=== PATIENT | female | born 1955 | race Caucasian/White ===

== ENCOUNTER 2022-07-01 20:06 | Inpatient (IN) | payer MEDICARE, OTHER ==
[2022-07-01] MEDS ORDERED: IPRATROPIUM-ALBUTEROL 3 ML NEB INHALATION STA (20:26)
[2022-07-01] MEDS ORDERED: methylPREDNISolone SOD SUCCI 125 MG/2 ML VIAL IV STA (20:26)
[2022-07-01] MEDS ORDERED: MAGNESIUM SULFATE-D5W PMX 1 GM in DEXTROSE/WATER 1 100ML.BAG IVPB STA (20:26)
[2022-07-01 20:44] LABS: Basophils # (A) 0.1 k/uL (0-0.2); Basophils % (A) 1 %; Eosinophils # (A) 0.1 k/uL (0-0.7); Eosinophils % (A) 1 %; HCT 42.9 % (34.0-46.0); Lymphocytes # (A) 1.9 k/uL (1.0-4.8); Lymphocytes % (A) 15 %; MCH 26.5 pg (25.0-35.0); MCHC 32.6 g/dL (31.0-37.0); MCV 81.3 fL (80.0-100.0); Mean Platelet Volume 8.9; Monocytes # (A) 0.8 k/uL (0-1.0); Monocytes % (A) 7 %; Neutrophils # (A) 9.8 k/uL (1.3-7.7); Neutrophils % (A) 76 %; Platelet Count 459 k/uL (150-450); RBC 5.27 m/uL (3.80-5.40); RDW 13.5 % (11.5-15.5); WBC 12.9 k/uL (3.8-10.6)
--- NOTE | 2022-07-01 20:44 | ED ---
SOB HPI <Adonis Kay - Last Filed: 07/01/22 20:57> - General Source: patient, family Mode of arrival: wheelchair Limitations: no limitations <Shelby Pretty - Last Filed: 07/02/22 04:20> - General Chief Complaint: Shortness of Breath Stated Complaint: Weakness Time Seen by Provider: 07/01/22 20:28 - History of Present Illness Initial Comments: Patient is a 67-year-old female presenting with chief complaint of shortness of breath. Patient admits to smoking a pack of cigarettes per day. Patient states that last week she has had progressive shortness of breath, today symptoms acutely worsened. She admits to chest pain and generalized weakness. She has been taking Mucinex for productive cough. No fevers or chills. No nausea, vomiting, abdominal pain. No palpitations. (Shelby Pretty) - Related Data Home Medications Medication Instructions Recorded Confirmed No Known Home Medications 07/01/22 07/01/22 Allergies Allergy/AdvReac Type Severity Reaction Status Date / Time No Known Allergies Allergy Verified 07/01/22 20:47 Review of Systems ROS Other: All systems not noted in ROS Statement are negative. <RahulAdonis - Last Filed: 07/01/22 20:57> ROS Other: All systems not noted in ROS Statement are negative. <Shelby Pretty - Last Filed: 07/02/22 04:20> ROS Statement: Those systems with pertinent positive or pertinent negative responses have been documented in the HPI. Past Medical History Past Medical History: No Reported History Past Surgical History: Tubal Ligation Past Psychological History: No Psychological Hx Reported Smoking Status: Current every day smoker Past Alcohol Use History: None Reported Past Drug Use History: None Reported <Shelby Pretty - Last Filed: 07/02/22 04:20> General Exam Limitations: no limitations General appearance: alert, in no apparent distress Head exam: Present: atraumatic, normocephalic, normal inspection Eye exam: Present: normal appearance Neck exam: Present: normal inspection Respiratory exam: Present: respiratory distress, decreased breath sounds (Left- sided) Cardiovascular Exam: Present: tachycardia, irregular rhythm, normal heart sounds. Absent: systolic murmur, diastolic murmur, rubs, gallop, clicks Neurological exam: Present: alert, oriented X3, CN II-XII intact Psychiatric exam: Present: normal affect, normal mood Skin exam: Present: warm, dry, intact, normal color. Absent: rash <Shelby Pretty - Last Filed: 07/02/22 04:20> Course Vital Signs 07/01/22 07/01/22 07/01/22 20:06 20:45 20:50 Temperature 97 F L Pulse Rate 120 H 118 H 125 H Respiratory 32 H 35 H 28 H Rate Blood Pressure 146/90 141/68 132/93 O2 Sat by Pulse 90 L 100 100 Oximetry Fraction of Inspired Oxygen (FIO2) 07/01/22 07/01/22 07/01/22 20:51 21:00 21:05 Temperature Pulse Rate 124 H 122 H 128 H Respiratory 30 H Rate Blood Pressure 132/93 O2 Sat by Pulse 100 Oximetry Fraction of 40 Inspired Oxygen (FIO2) 07/01/22 07/01/22 07/01/22 21:10 21:19 21:20 Temperature Pulse Rate 122 H 122 H 161 H Respiratory 32 H 34 H Rate Blood Pressure 132/93 129/82 129/82 O2 Sat by Pulse 100 100 100 Oximetry Fraction of Inspired Oxygen (FIO2) 07/01/22 07/01/22 07/01/22 21:30 21:40 21:50 Temperature Pulse Rate 115 H 116 H 115 H Respiratory 32 H 32 H 32 H Rate Blood Pressure 129/82 116/89 116/89 O2 Sat by Pulse 99 99 98 Oximetry Fraction of Inspired Oxygen (FIO2) 07/01/22 07/01/22 07/01/22 22:00 22:08 22:10 Temperature Pulse Rate 179 H 113 H 113 H Respiratory 33 H 32 H 33 H Rate Blood Pressure 116/89 111/88 O2 Sat by Pulse 98 98 98 Oximetry Fraction of Inspired Oxygen (FIO2) 07/01/22 07/01/22 07/01/22 22:20 22:21 22:30 Temperature Pulse Rate 112 H 116 H 117 H Respiratory 43 H 35 H 31 H Rate Blood Pressure 117/82 136/90 136/90 O2 Sat by Pulse 97 98 97 Oximetry Fraction of Inspired Oxygen (FIO2) 07/01/22 07/01/22 07/01/22 22:40 22:50 23:00 Temperature Pulse Rate 113 H 118 H 115 H Respiratory 33 H 32 H 29 H Rate Blood Pressure 113/82 119/84 133/86 O2 Sat by Pulse 98 98 99 Oximetry Fraction of Inspired Oxygen (FIO2) 07/01/22 07/01/22 07/01/22 23:10 23:20 23:30 Temperature Pulse Rate 115 H 114 H 113 H Respiratory 32 H 33 H 34 H Rate Blood Pressure 120/83 126/89 127/82 O2 Sat by Pulse 98 98 98 Oximetry Fraction of Inspired Oxygen (FIO2) 07/01/22 07/01/22 07/01/22 23:33 23:40 23:50 Temperature Pulse Rate 107 H 111 H Respiratory 28 H 26 H Rate Blood Pressure 134/87 120/83 O2 Sat by Pulse 96 97 Oximetry Fraction of 40 Inspired Oxygen (FIO2) 07/02/22 07/02/22 00:00 00:10 Temperature Pulse Rate 128 H Respiratory 32 H Rate Blood Pressure 134/79 O2 Sat by Pulse 96 Oximetry Fraction of Inspired Oxygen (FIO2) Medical Decision Making - Lab Data Result diagrams: 07/01/22 20:36 - EKG Data -: EKG Interpreted by Me <Adonis Kay - Last Filed: 07/01/22 20:57> - Lab Data Result diagrams: 07/01/22 20:36 07/01/22 20:36 <Shelby Pretty - Last Filed: 07/02/22 04:20> - Medical Decision Making Was pt. sent in by a medical professional or institution ([facility], [employer], urgent care, hospital, or jail...) When possible be specific @ -No Did you speak to anyone other than the patient for history (EMS, parent, family, police, friend...)? What history was obtained from this source @ -Patient's son Did you review nursing and triage notes (agree or disagree)? Why? @ -I reviewed and agree with nursing and triage notes Were old charts reviewed (outside hosp., previous admission, EMS record, old EKG, old radiological studies, urgent care reports/EKG's, jail records)? Report findings @ -No old charts were reviewed Differential Diagnosis (chest pain, altered mental status, abdominal pain women, abdominal pain men, vaginal bleeding, weakness, fever, dyspnea, syncope, headache, dizziness, GI bleed, back pain, seizure, CVA, palpatations, mental health, musculoskeletal)? @ -MDM Differential Dyspnea: Coronary syndrome, arrhythmia, tamponade, asthma, COPD, pulmonary embolism, pneumonia, pneumothorax, pulmonary effusion, anaphylaxis, diabetic ketoacidosis, flailed chest, pulmonary contusion, diaphragmatic rupture, anemia, neuromuscular this is not meant to be an all-inclusive list. EKG interpreted by me (3pts min.). @ -As above X-rays interpreted by me (1pt min.). @ -Chest x-ray shows large left pleural effusion and lower lobe consolidation. Small right pleural effusion and right basilar infiltrate. No obvious heart failure. CT interpreted by me (1pt min.). @ -None done U/S interpreted by me (1pt. min.). @ -None done What testing was considered but not performed or refused? (CT, X-rays, U/S, labs)? Why? @ -None What meds were considered but not given or refused? Why? @ -None Did you discuss the management of the patient with other professionals (professionals i.e. , PA, [employer], lab, RT, psych nurse, psychiatric social worker supervisor, cigar head stringer, teacher, safety officer, casey saw operator)? Give summary @ -No Was smoking cessation discussed for >3mins.? @ -No Was critical care preformed (if so, how long)? @ -No Were there social determinants of health that impacted care today? How? (H omelessness, low income, unemployed, alcoholism, drug addiction, transportation, low edu. Level, literacy, decrease access to med. care, halfway, rehab)? @ -No Was there de-escalation of care discussed even if they declined (Discuss DNR or withdrawal of care, Hospice)? DNR status @ -No What co-morbidities impacted this encounter? (DM, HTN, Smoking, COPD, CAD, Cancer, CVA, ARF, Chemo, Hep., AIDS, mental health diagnosis, sleep apnea, morbid obesity)? @ -Smoking Was patient admitted / discharged? Hospital course, mention meds given and route, prescriptions, significant lab abnormalities, going to OR and other pertinent info. @ -Patient is a 67-year-old female presenting with chief complaint of shortness of breath and chest pain. Symptoms acutely worsen today after a week of symptoms. EKG shows A. fib with RVR with rate in the 180s. Patient is started on Cardizem drip of 5 mg per hour, after a bolus of 5 mg. Lab work shows WBC 12.9. Sodium 133. Lactic acid 4.9. Troponin 0.051. BNP 1670. Patient is negative for influenza, RSV, and Covid. Chest x-ray shows large left-sided pleural effusion, suspect possible mass due to patient's history of smoking and presentation. Patient was also given DuoNeb and Solu-Medrol. Patient will be admitted for acute COPD exacerbation, pleural effusion, and A. fib with RVR. I spoke with Dr. Carrasquillo who accepted admission. Patient is agreeable with this plan. I discussed this case with my attending Dr. Trevizo. Undiagnosed new problem with uncertain prognosis? @ -No Drug Therapy requiring intensive monitoring for toxicity (Heparin, Nitro, Insulin, Cardizem)? @ -Cardizem Were any procedures done? @ -No Diagnosis/symptom? @ -COPD Acute, or Chronic, or Acute on Chronic? @ -Acute Uncomplicated (without systemic symptoms) or Complicated (systemic symptoms)? @ -Complicated Side effects of treatment? @ -No Exacerbation, Progression, or Severe Exacerbation? @ -No Poses a threat to life or bodily function? How? (Chest pain, USA, NM, pneumonia, PE, COPD, DKA, ARF, appy, cholecystitis, CVA, Diverticulitis, Homicidal, Suicidal, threat to staff... and all critical care pts) @ -Yes Diagnosis/symptom? @Pleural effusion Acute, or Chronic, or Acute on Chronic? @Acute Uncomplicated (without systemic symptoms) or Complicated (systemic symptoms)? @Complicated Side effects of treatment? @ none Exacerbation, Progression, or Severe Exacerbation] @ no Poses a threat to life or bodily function? @yes Diagnosis/symptom? @A. fib with RVR Acute, or Chronic, or Acute on Chronic? @Acute Uncomplicated (without systemic symptoms) or Complicated (systemic symptoms)? @Complicated Side effects of treatment? @ hypotension Exacerbation, Progression, or Severe Exacerbation] @ no Poses a threat to life or bodily function? @Yes (Shelby Pretty) - Lab Data Lab Results 07/01/22 07/01/22 07/01/22 Range/Units 20:36 20:36 20:36 WBC 12.9 H (3.8-10.6) k/uL RBC 5.27 (3.80-5.40) m/uL Hgb 14.0 (11.4-16.0) gm/dL Hct 42.9 (34.0-46.0) % MCV 81.3 (80.0-100.0) fL MCH 26.5 (25.0-35.0) pg MCHC 32.6 (31.0-37.0) g/dL RDW 13.5 (11.5-15.5) % Plt Count 459 H (150-450) k/uL MPV 8.9 Neutrophils % 76 % Lymphocytes % 15 % Monocytes % 7 % Eosinophils % 1 % Basophils % 1 % Neutrophils # 9.8 H (1.3-7.7) k/uL Lymphocytes # 1.9 (1.0-4.8) k/uL Monocytes # 0.8 (0-1.0) k/uL Eosinophils # 0.1 (0-0.7) k/uL Basophils # 0.1 (0-0.2) k/uL PT 11.0 (9.0-12.0) sec INR 1.1 (<1.2) APTT 23.3 (22.0-30.0) sec D-Dimer (<0.60) mg/L FEU Sodium 133 L (137-145) mmol/L Potassium 4.1 (3.5-5.1) mmol/L Chloride 97 L (98-107) mmol/L Carbon Dioxide 20 L (22-30) mmol/L Anion Gap 16 mmol/L BUN 16 (7-17) mg/dL Creatinine 0.55 (0.52-1.04) mg/dL Est GFR (CKD-EPI)AfAm >90 (>60 ml/min/1.73 sqM) Est GFR (CKD-EPI)NonAf >90 (>60 ml/min/1.73 sqM) Glucose 136 H (74-99) mg/dL Lactic Ac Sepsis Rflx Plasma Lactic Acid Loco (0.7-2.0) mmol/L Calcium 9.1 (8.4-10.2) mg/dL Magnesium 2.2 (1.6-2.3) mg/dL Total Bilirubin 0.8 (0.2-1.3) mg/dL AST 26 (14-36) U/L ALT 35 H (4-34) U/L Alkaline Phosphatase 148 H (38-126) U/L Troponin I (0.000-0.034) ng/mL NT-Pro-B Natriuret Pep pg/mL Total Protein 7.5 (6.3-8.2) g/dL Albumin 4.1 (3.5-5.0) g/dL Influenza Type A (PCR) (Not Detectd) Influenza Type B (PCR) (Not Detectd) RSV (PCR) (Not Detectd) SARS-CoV-2 (PCR) (Not Detectd) 07/01/22 07/01/22 07/01/22 Range/Units 20:36 20:36 20:36 WBC (3.8-10.6) k/uL RBC (3.80-5.40) m/uL Hgb (11.4-16.0) gm/dL Hct (34.0-46.0) % MCV (80.0-100.0) fL MCH (25.0-35.0) pg MCHC (31.0-37.0) g/dL RDW (11.5-15.5) % Plt Count (150-450) k/uL MPV Neutrophils % % Lymphocytes % % Monocytes % % Eosinophils % % Basophils % % Neutrophils # (1.3-7.7) k/uL Lymphocytes # (1.0-4.8) k/uL Monocytes # (0-1.0) k/uL Eosinophils # (0-0.7) k/uL Basophils # (0-0.2) k/uL PT (9.0-12.0) sec INR (<1.2) APTT (22.0-30.0) sec D-Dimer (<0.60) mg/L FEU Sodium (137-145) mmol/L Potassium (3.5-5.1) mmol/L Chloride (98-107) mmol/L Carbon Dioxide (22-30) mmol/L Anion Gap mmol/L BUN (7-17) mg/dL Creatinine (0.52-1.04) mg/dL Est GFR (CKD-EPI)AfAm (>60 ml/min/1.73 sqM) Est GFR (CKD-EPI)NonAf (>60 ml/min/1.73 sqM) Glucose (74-99) mg/dL Lactic Ac Sepsis Rflx Plasma Lactic Acid Loco 4.9 H* (0.7-2.0) mmol/L Calcium (8.4-10.2) mg/dL Magnesium (1.6-2.3) mg/dL Total Bilirubin (0.2-1.3) mg/dL AST (14-36) U/L ALT (4-34) U/L Alkaline Phosphatase (38-126) U/L Troponin I 0.051 H* (0.000-0.034) ng/mL NT-Pro-B Natriuret Pep pg/mL Total Protein (6.3-8.2) g/dL Albumin (3.5-5.0) g/dL Influenza Type A (PCR) Not Detected (Not Detectd) Influenza Type B (PCR) Not Detected (Not Detectd) RSV (PCR) Not Detected (Not Detectd) SARS-CoV-2 (PCR) Not Detected (Not Detectd) 07/01/22 07/01/22 07/01/22 Range/Units 20:36 20:38 21:03 WBC (3.8-10.6) k/uL RBC (3.80-5.40) m/uL Hgb (11.4-16.0) gm/dL Hct (34.0-46.0) % MCV (80.0-100.0) fL MCH (25.0-35.0) pg MCHC (31.0-37.0) g/dL RDW (11.5-15.5) % Plt Count (150-450) k/uL MPV Neutrophils % % Lymphocytes % % Monocytes % % Eosinophils % % Basophils % % Neutrophils # (1.3-7.7) k/uL Lymphocytes # (1.0-4.8) k/uL Monocytes # (0-1.0) k/uL Eosinophils # (0-0.7) k/uL Basophils # (0-0.2) k/uL PT (9.0-12.0) sec INR (<1.2) APTT (22.0-30.0) sec D-Dimer 2.16 H (<0.60) mg/L FEU Sodium (137-145) mmol/L Potassium (3.5-5.1) mmol/L Chloride (98-107) mmol/L Carbon Dioxide (22-30) mmol/L Anion Gap mmol/L BUN (7-17) mg/dL Creatinine (0.52-1.04) mg/dL Est GFR (CKD-EPI)AfAm (>60 ml/min/1.73 sqM) Est GFR (CKD-EPI)NonAf (>60 ml/min/1.73 sqM) Glucose (74-99) mg/dL Lactic Ac Sepsis Rflx Y Plasma Lactic Acid Loco (0.7-2.0) mmol/L Calcium (8.4-10.2) mg/dL Magnesium (1.6-2.3) mg/dL Total Bilirubin (0.2-1.3) mg/dL AST (14-36) U/L ALT (4-34) U/L Alkaline Phosphatase (38-126) U/L Troponin I (0.000-0.034) ng/mL NT-Pro-B Natriuret Pep 1670 pg/mL Total Protein (6.3-8.2) g/dL Albumin (3.5-5.0) g/dL Influenza Type A (PCR) (Not Detectd) Influenza Type B (PCR) (Not Detectd) RSV (PCR) (Not Detectd) SARS-CoV-2 (PCR) (Not Detectd) - EKG Data EKG Comments: Atrial fibrillation with rapid ventricular response ventricular rate 182. AK interval indeterminable. QRS 86. QT 227. QTC 322. (Shelby Pretty) Disposition <Adonis Kay - Last Filed: 07/01/22 20:57> Time of Disposition: 22:07 <Shelby Pretty - Last Filed: 07/02/22 04:20> Clinical Impression: COPD (chronic obstructive pulmonary disease), Pleural effusion, Atrial fibrillation with RVR Disposition: ADMITTED IP TO THIS HOSP Condition: Serious
[2022-07-01] MEDS ORDERED: DILTIAZEM DRIP BOLUS FROM BAG 1 MG SOLN IV ONE (20:49)
[2022-07-01 20:56] LABS: AST 26 U/L (14-36); African American GFR (CKD) >90 (>60 ml/min/1.73 sqM); Albumin 4.1 g/dL (3.5-5.0); Alkaline Phosphatase 148 U/L (38-126); Anion Gap 16 mmol/L; Blood Urea Nitrogen 16 mg/dL (7-17); Calcium 9.1 mg/dL (8.4-10.2); Carbon Dioxide 20 mmol/L (22-30); Chloride 97 mmol/L (98-107); Glucose 136 mg/dL (74-99); Magnesium 2.2 mg/dL (1.6-2.3); Non-African American GFR(CKD) >90 (>60 ml/min/1.73 sqM); Potassium 4.1 mmol/L (3.5-5.1); Sodium 133 mmol/L (137-145); Total Bilirubin 0.8 mg/dL (0.2-1.3); Total Protein 7.5 g/dL (6.3-8.2)
[2022-07-01 20:59] LABS: INR 1.1 (<1.2); Partial Thromboplastin Time 23.3 sec (22.0-30.0)
[2022-07-01] MEDS ORDERED: DILTIAZEM 125 MG in SODIUM CHLORIDE 0.9% 100 ML IV SCH ×3 (21:00→22:15)
[2022-07-01 21:02] LABS: ALT 35 U/L (4-34)
--- NOTE | 2022-07-01 21:02 | XR ---
EXAMINATION TYPE: XR chest 1V portable DATE OF EXAM: 07/01/2022 COMPARISON: NONE HISTORY: Short of breath TECHNIQUE: Single view FINDINGS: Heart is enlarged. There is blunting of the costophrenic angles and more on the left side. There is large left pleural effusion. Right lung is clear of infiltrate. No obvious heart failure. No pneumothorax. IMPRESSION: Large left pleural effusion and left lower lobe consolidation. Small right pleural effusi on and right basilar infiltrate. No obvious heart failure.
[2022-07-01] MEDS ORDERED: cefTRIAXone IN SWFI 1,000 MG/10 ML SYRINGE IVP STA (22:36)
[2022-07-01] MEDS ORDERED: AZITHROMYCIN 500 MG in SODIUM CHLORIDE 0.9% 250 ML IVPB STA (22:36)
[2022-07-01] MEDS ORDERED: NALOXONE 0.4 MG/ML 1 ML VIAL IV PRN (22:44)
[2022-07-01] MEDS ORDERED: SODIUM CHLORIDE 0.9% 500 ML 500 ML IV ONE (23:03)
[2022-07-01] MEDS ORDERED: SODIUM CHLORIDE 0.9% 1,000 ML IV ONE (23:03)
--- NOTE | 2022-07-02 00:29 | CT ---
EXAMINATION TYPE: CT chest angio for PE DATE OF EXAM: 07/02/2022 COMPARISON: None HISTORY: 270.7 CT DLP: ELEVATED D DIMER mGycm Automated exposure control for dose reduction was used. CONTRAST: Performed with IV Contrast, patient injected with 80 mL of Isovue 370. There are Three-D postprocessed images. There is diffuse bullous pulmonary emphysema. There is large left pleural effusion. There is some con solidation and atelectasis in the lingula left upper lobe. There is significant obstruction of the br anches of the left bronchus with luminal narrowing and filling defects. Heart size is normal. There is a moderate pericardial effusion. There is suggestion of a masslike den sity at the left perihilum that measures 5 x 4 cm. No evidence of filling defect in the pulmonary art eries. There are some patchy infiltrate in the right lower lobe at the lung base. There is 2.5 cm nazanin llate infiltrate medial right upper lobe. The thoracic spine is intact. No compression fracture. Sternum is intact. IMPRESSION: No evidence of pulmonary embolism. Extensive consolidation in the lingula left upper lobe with possible large mass at the left pulmonary hilum. Significant narrowing of the branches of the left bronchus that could relate to extrinsic compression from tumor. Large left pleural effusion with moderate-sized pericardial effusion. Bullous pulmonary emphysema. Th ere is enlarged 2.5 cm subcarinal lymph node. Stellate infiltrate medial right upper lobe.
[2022-07-02] MEDS ORDERED: ALBUTEROL HFA INHALER INHALATION PRN (01:04)
--- NOTE | 2022-07-02 01:05 | P.HPIM ---
History of Present Illness H&P Date: 07/01/22 The patient is a 67-year-old female with a PMH of tobacco abuse and no contact with a physician for over a decade who presents to the emergency room with complaints of shortness of breath. The patient reports that her breathing gradually worsened over the past 1-2 days. She also reports gradual weight loss due to anorexia and poor oral intake over the past several months. Patient reports smoking 1 pack of cigarettes daily for most of her life. She reports a chronic unchanged unproductive cough. Denies chest discomfort, nausea, vomiting, palpitations, or diaphoresis. Also denied orthopnea, PND, or lower extremity edema. Chest CTA revealed a likely 5 cm x 4 cm mass at the left perihilum with significant narrowing of the branches of the left bronchus as well as a large left-sided pleural effusion with moderate sized pericardial effusion. Review of systems: Pertinent positives and negatives as discussed in HPI, a complete review of systems was performed and all other systems are negative. Physical examination: Vital signs reviewed General: On BiPAP, non toxic, no distress, appears older than stated age, normal weight Derm: no unusual rashes/lesions, warm Head: atraumatic, normocephalic, symmetric Eyes: EOMI, no lid lag, anicteric sclera, pupils equal round reactive to light ENT: Nose and ears atraumatic Neck: No cervical lymphadenopathy, trachea midline, supple Mouth: no lip lesion, mucus membranes moist Cardiovascular: S1S2 reg, no murmur, positive dorsalis pedis pulse bilateral, no edema Lungs: Scattered rhonchi with somewhat poor breath sounds, no accessory muscle use Abdominal: soft, nontender to palpation, no guarding Ext: muscle strength 4 out of 5 in all 4 extremities grossly, no gross muscle atrophy, no contractures, Neuro: CN II-XI grossly intact, no gross focal neuro deficits Psych: Alert, oriented, appropriate affect Assessment: Acute hypoxic respiratory failure, likely secondary to large left pleural effusion with underlying mass A. fib with RVR Elevated troponin Lactic acidosis Imaging: Chest CTA revealed a likely 5 cm x 4 cm mass at the left perihilum with signific ant narrowing of the branches of the left bronchus as well as a large left-sided pleural effusion with moderate sized pericardial effusion. EKG revealed A. fib with RVR at 182 bpm. Data Review: Vital signs upon arrival at the emergency room were BP 146/90, SpO2 90% on room air, temp 97F, pulse 120, respiratory rate 32. Left evaluation was remarkable for troponin 0.051, d-dimer 2.16, proBNP 1670, WBC count 12.9, platelets 459, lactic acid 4.9, and sodium 133. Plan: Pulmonary consulted for thoracentesis C/w Cardizem infusion Cardiology consulted Duonebs inhaled prn and RTC ordered C/w Bipap for now Obtain ABG Obtain Echocardiogram and consider cardiothoracic surgery consult for pericardial effusion drainage vs window Trend troponin Monitor lactic acid for resolution DVT prophylaxis: Lovenox The patient is admitted with an anticipated greater than 2 midnight stay for evaluation of hypoxic respiratory failure CODE STATUS: Full Code Discussed with: Patient, son, grand-daughter Anticipated discharge place: Home Past Medical History Past Medical History: No Reported History Past Surgical History: Tubal Ligation Past Psychological History: No Psychological Hx Reported Smoking Status: Current every day smoker Past Alcohol Use History: None Reported Past Drug Use History: None Reported - Past Family History Mother Family Medical History: COPD Medications and Allergies Home Medications Medication Instructions Recorded Confirmed Type No Known Home Medications 07/01/22 07/01/22 History Allergies Allergy/AdvReac Type Severity Reaction Status Date / Time No Known Allergies Allergy Verified 07/01/22 20:47 Physical Exam Vitals: Vital Signs Temp Pulse Resp BP Pulse Ox FiO2 07/01/22 23:40 110 H 29 H 134/87 96 07/01/22 23:33 40 07/01/22 23:30 113 H 34 H 127/82 98 07/01/22 23:20 114 H 33 H 126/89 98 07/01/22 23:10 115 H 32 H 120/83 98 07/01/22 23:00 115 H 29 H 133/86 99 07/01/22 22:50 118 H 32 H 119/84 98 07/01/22 22:40 113 H 33 H 113/82 98 07/01/22 22:30 117 H 31 H 136/90 97 07/01/22 22:21 116 H 35 H 136/90 98 07/01/22 22:20 112 H 43 H 117/82 97 07/01/22 22:10 113 H 33 H 111/88 98 07/01/22 22:08 113 H 32 H 98 07/01/22 22:00 179 H 33 H 116/89 98 07/01/22 21:50 115 H 32 H 116/89 98 07/01/22 21:40 116 H 32 H 116/89 99 07/01/22 21:30 115 H 32 H 129/82 99 07/01/22 21:20 161 H 34 H 129/82 100 07/01/22 21:19 122 H 32 H 129/82 100 07/01/22 21:10 122 H 132/93 100 07/01/22 21:05 128 H 07/01/22 21:00 122 H 30 H 132/93 100 07/01/22 20:51 124 H 40 07/01/22 20:50 125 H 28 H 132/93 100 07/01/22 20:45 118 H 35 H 141/68 100 07/01/22 20:06 97 F L 120 H 32 H 146/90 90 L Intake and Output 07/01/22 07/01/22 07/02/22 14:59 22:59 07:59 Intake Total 3.917 13.167 Balance 3.917 13.167 Intake: Intake, IV Titration 3.917 13.167 Amount Diltiazem 125 mg In 3.917 Sodium Chloride 0.9% 100 ml @ 5 MG/HR 5 mls/hr IV .Q24H [facility] Rx#:[id number] Diltiazem 125 mg In 0 13.167 Sodium Chloride 0.9% 100 ml @ 5 MG/HR 5 mls/hr IV .Q24H [facility] Rx#:[id number] Other: Weight 54.431 kg Results CBC & Chem 7: 07/01/22 20:36 07/01/22 20:36 Labs: Abnormal Lab Results - Last 24 Hours (Table) 07/01/22 07/01/22 07/01/22 Range/Units 20:36 20:36 20:36 WBC 12.9 H (3.8-10.6) k/uL Plt Count 459 H (150-450) k/uL Neutrophils # 9.8 H (1.3-7.7) k/uL D-Dimer (<0.60) mg/L FEU Sodium 133 L (137-145) mmol/L Chloride 97 L (98-107) mmol/L Carbon Dioxide 20 L (22-30) mmol/L Glucose 136 H (74-99) mg/dL Plasma Lactic Acid Loco 4.9 H* (0.7-2.0) mmol/L ALT 35 H (4-34) U/L Alkaline Phosphatase 148 H (38-126) U/L Troponin I (0.000-0.034) ng/mL 07/01/22 07/01/22 Range/Units 20:36 20:36 WBC (3.8-10.6) k/uL Plt Count (150-450) k/uL Neutrophils # (1.3-7.7) k/uL D-Dimer 2.16 H (<0.60) mg/L FEU Sodium (137-145) mmol/L Chloride (98-107) mmol/L Carbon Dioxide (22-30) mmol/L Glucose (74-99) mg/dL Plasma Lactic Acid Loco (0.7-2.0) mmol/L ALT (4-34) U/L Alkaline Phosphatase (38-126) U/L Troponin I 0.051 H* (0.000-0.034) ng/mL
[2022-07-02] MEDS: ALBUTEROL HFA INHALER INHALATION SCH ×4 (07:52→20:13)
[2022-07-02] MEDS: TIOTROPIUM 2.5 MCG INHALER INHALATION SCH (07:52)
[2022-07-02] MEDS ORDERED: ENOXAPARIN 40 MG/0.4 ML SYRINGE SQ SCH (09:00)
[2022-07-02] MEDS ORDERED: HEPARIN SODIUM 1,000 UN/ML (10ML VL) IV ONE (10:05)
--- NOTE | 2022-07-02 10:22 | P.CRDCN ---
History of Present Illness Consult date: 07/02/22 Requesting physician: Riaz Carrasquillo Reason for Consult (text): elevated troponin Chief complaint: lighteadedness, shortness of breath History of present illness: This is a pleasant 67-year-old female patient who has no significant past medical history but has not seen a physician in many many years. She is a current smoker for many years of one to one and a half packs per day. She had been complaining of a cough, productive over the past week and had been taking Mucinex at home. She presented to the emergency department with complaints of worsening shortness of breath and lightheadedness. Upon presentation she was found to be in atrial fibrillation with rapid ventricular response. We were asked to the patient in consultation for elevated troponins which came back at 0.051, 0.035 and 0.036. Chest x-ray on admission showed a large left pleural effusion and left lower lobe consolidation with a small right pleural effusion and right basilar infiltrate, no obvious heart failure. NT proBNP was 1670. CTA of the chest was negative for PE but did show evidence of extensive consolid ation in the lingula and left upper lobe with possible large mass of the left pulmonary hilum, significant narrowing of the branches of the left bronchus that could be related to straining to compression from tumor, large left pleural effusion with moderate sized pericardial effusion, bullous pulmonary emphysema, enlarged 2.5 cm subcarinal lymph node and stellate infiltrate medial right upper lobe. She was initiated on BiPAP. She's been on IV Cardizem 5 mg an hour and heart rate is better controlled in the 80s to 90s. She feels her breathing is better with the BiPAP. Pulmonary has been consulted. He denies any complaints of chest discomfort or palpitations. She's had no syncope. She denies any orthopnea, PND or edema. Past Medical History Past Medical History: No Reported History History of Any Multi-Drug Resistant Organisms: None Reported Past Surgical History: Tubal Ligation Past Psychological History: No Psychological Hx Reported Smoking Status: Current every day smoker Past Alcohol Use History: None Reported Past Drug Use History: None Reported - Past Family History Mother Family Medical History: COPD Medications and Allergies Home Medications Medication Instructions Recorded Confirmed Type No Known Home Medications 07/01/22 07/01/22 History Allergies Allergy/AdvReac Type Severity Reaction Status Date / Time No Known Allergies Allergy Verified 07/01/22 20:47 Physical Exam Vitals: Vital Signs Temp Pulse Pulse Resp BP BP Pulse Ox 07/02/22 08:00 97.5 F L 96 25 H 125/68 94 L 07/02/22 04:31 07/02/22 03:37 98.1 F 110 H 26 H 142/67 95 07/02/22 03:00 110 H 28 H 07/02/22 00:10 128 H 32 H 96 07/02/22 00:00 134/79 07/01/22 23:50 111 H 26 H 120/83 97 07/01/22 23:40 107 H 28 H 134/87 96 07/01/22 23:33 07/01/22 23:30 113 H 34 H 127/82 98 07/01/22 23:20 114 H 33 H 126/89 98 07/01/22 23:10 115 H 32 H 120/83 98 07/01/22 23:00 115 H 29 H 133/86 99 07/01/22 22:50 118 H 32 H 119/84 98 07/01/22 22:40 113 H 33 H 113/82 98 07/01/22 22:30 117 H 31 H 136/90 97 07/01/22 22:21 116 H 35 H 136/90 98 07/01/22 22:20 112 H 43 H 117/82 97 07/01/22 22:10 113 H 33 H 111/88 98 07/01/22 22:08 113 H 32 H 98 07/01/22 22:00 179 H 33 H 116/89 98 07/01/22 21:50 115 H 32 H 116/89 98 07/01/22 21:40 116 H 32 H 116/89 99 07/01/22 21:30 115 H 32 H 129/82 99 07/01/22 21:20 161 H 34 H 129/82 100 07/01/22 21:19 122 H 32 H 129/82 100 07/01/22 21:10 122 H 132/93 100 07/01/22 21:05 128 H 07/01/22 21:00 122 H 30 H 132/93 100 07/01/22 20:51 124 H 07/01/22 20:50 125 H 28 H 132/93 100 07/01/22 20:45 118 H 35 H 141/68 100 07/01/22 20:06 97 F L 120 H 32 H 146/90 90 L FiO2 07/02/22 08:00 40 07/02/22 04:31 40 07/02/22 03:37 40 07/02/22 03:00 07/02/22 00:10 07/02/22 00:00 07/01/22 23:50 07/01/22 23:40 07/01/22 23:33 40 07/01/22 23:30 07/01/22 23:20 07/01/22 23:10 07/01/22 23:00 07/01/22 22:50 07/01/22 22:40 07/01/22 22:30 07/01/22 22:21 07/01/22 22:20 07/01/22 22:10 07/01/22 22:08 07/01/22 22:00 07/01/22 21:50 07/01/22 21:40 07/01/22 21:30 07/01/22 21:20 07/01/22 21:19 07/01/22 21:10 07/01/22 21:05 07/01/22 21:00 07/01/22 20:51 40 07/01/22 20:50 07/01/22 20:45 07/01/22 20:06 Intake and Output 07/01/22 07/02/22 07/02/22 21:59 06:59 14:59 Intake Total Balance Intake: Intake, IV Titration Amount Diltiazem 125 mg In Sodium Chloride 0.9% 100 ml @ 5 MG/HR 5 mls/hr IV .Q24H [facility] Rx#:[id number] Diltiazem 125 mg In Sodium Chloride 0.9% 100 ml @ 5 MG/HR 5 mls/hr IV .Q24H [facility] Rx#:[id number] Other: Voiding Method External Catheter Weight PHYSICAL EXAMINATION: This is a 67-year-old female on bipap at the time of my examination. HEENT: Head is atraumatic, normocephalic. Pupils are equal, round. Sclerae anicteric. Conjunctivae are clear. Mucous membranes of the mouth are moist. Neck is supple. There is no elevated jugular venous pressure. No carotid bruit is heard. CHEST EXAMINATION: Lungs reveal diminished air entry bilaterally more so on the left. No wheezes rales or rhonchi. Respirations even. HEART EXAMINATION: Heart irregular rate and rhythm, positive S1 and S2. No S3. No S4. Systolic murmur. ABDOMEN: Soft, nontender. Bowel sounds are heard. No organomegaly noted. EXTREMITIES: 2+ peripheral pulses with no evidence of peripheral edema and no calf tenderness noted. NEUROLOGIC EXAMINATION: Patient is awake, alert and oriented x3. Results 07/01/22 20:36 07/01/22 20:36 Cardiac Enzymes 07/01/22 07/01/22 07/02/22 Range/Units 20:36 20:36 00:08 AST 26 (14-36) U/L Troponin I 0.051 H* 0.035 H* (0.000-0.034) ng/mL 07/02/22 Range/Units 04:40 AST (14-36) U/L Troponin I 0.036 H* (0.000-0.034) ng/mL Coagulation 07/01/22 Range/Units 20:36 PT 11.0 (9.0-12.0) sec APTT 23.3 (22.0-30.0) sec CBC 07/01/22 Range/Units 20:36 WBC 12.9 H (3.8-10.6) k/uL RBC 5.27 (3.80-5.40) m/uL Hgb 14.0 (11.4-16.0) gm/dL Hct 42.9 (34.0-46.0) % Plt Count 459 H (150-450) k/uL Comprehensive Metabolic Panel 07/01/22 Range/Units 20:36 Sodium 133 L (137-145) mmol/L Potassium 4.1 (3.5-5.1) mmol/L Chloride 97 L (98-107) mmol/L Carbon Dioxide 20 L (22-30) mmol/L BUN 16 (7-17) mg/dL Creatinine 0.55 (0.52-1.04) mg/dL Glucose 136 H (74-99) mg/dL Calcium 9.1 (8.4-10.2) mg/dL AST 26 (14-36) U/L ALT 35 H (4-34) U/L Alkaline Phosphatase 148 H (38-126) U/L Total Protein 7.5 (6.3-8.2) g/dL Albumin 4.1 (3.5-5.0) g/dL Current Medications Generic Name Dose Route Start Last Admin Trade Name Freq PRN Reason Stop Dose Admin Albuterol Sulfate 2 puff 07/02/22 01:04 Albuterol Hfa Inhaler INHALATION RT-QID PRN Shortness Of Breath Or Wheezing Albuterol Sulfate 2 puff 07/02/22 08:00 07/02/22 07:52 Albuterol Hfa Inhaler INHALATION 2 puff RT-QID [facility] Administration Enoxaparin Sodium 40 mg 07/02/22 09:00 07/02/22 08:39 Enoxaparin 40 Mg/0.4 Ml Syringe SQ 40 mg DAILY [facility] Administration Diltiazem HCl 125 mg/ Sodium 125 mls @ 5 mls/hr 07/01/22 22:15 07/02/22 00:35 Chloride IV 0 mg/hr .Q24H [facility] 0 mls/hr Titration Protocol 5 MG/HR Naloxone HCl 0.2 mg 07/01/22 22:44 Naloxone 0.4 Mg/Ml 1 Ml Vial IV Q2M PRN Opioid Reversal Tiotropium [facility] 2 puff 07/02/22 08:00 07/02/22 07:52 Tiotropium 2.5 Mcg Inhaler INHALATION 2 puff RT-DAILY [facility] Administration Intake and Output 07/01/22 07/02/22 07/02/22 21:59 06:59 14:59 Intake Total Balance Intake: Intake, IV Titration Amount Diltiazem 125 mg In Sodium Chloride 0.9% 100 ml @ 5 MG/HR 5 mls/hr IV .Q24H [facility] Rx#:[id number] Diltiazem 125 mg In Sodium Chloride 0.9% 100 ml @ 5 MG/HR 5 mls/hr IV .Q24H [facility] Rx#:[id number] Other: Voiding Method External Catheter Weight 07/01/22 20:36 07/01/22 20:36 EKG Interpretations (text) Atrial fibrillation with rapid ventricular response Assessment and Plan Assessment: 1 new onset atrial fibrillation with rapid ventricular response, likely persistent 2 respiratory failure, on BiPAP 3 large left pleural effusion 4 large left lung mass, consistent with malignancy 5 pericardial effusion, moderate 6 nicotine dependence Plan: From cardiology's perspective obtain a 2-D echo with Doppler study to assess cardiac structure and function. We'll start the patient on IV heparin. Stop IV Cardizem and switched to by mouth Cardizem. We will check TSH. We will continue to follow the patient and provide further recommendations accordingly. SENIOR DATA MINING ANALYST note has been reviewed, I agree with a documented findings and plan of care. Patient was seen and examined.
[2022-07-02 10:33] LABS: Appearance,Urine Clear (Clear); Bilirubin,Urine Negative (Negative); Blood,Urine Negative (Negative); Color,Urine Yellow; Glucose,Urine (UA) Negative (Negative); Ketones,Urine 2+ (Negative); Leukocyte Esterase,Urine Negative (Negative); Mucus,Urine Rare /hpf; Nitrite,Urine Negative (Negative); Protein,Urine 1+ (Negative); RBC,Urine 3 /hpf (0-5); Specific Gravity,Urine >1.050 (1.001-1.035); Squamous Epithelial Cell,Urine <1 /hpf (0-4); Urobilinogen,Urine <2.0 mg/dL (<2.0); WBC,Urine 3 /hpf (0-5)
[2022-07-02 10:46] LABS: Basophils % (A) 0 %; Eosinophils # (A) 0.1 k/uL (0-0.7); Eosinophils % (A) 1 %; HCT 35.4 % (34.0-46.0); HGB 11.9 gm/dL (11.4-16.0); Lymphocytes # (A) 0.9 k/uL (1.0-4.8); Lymphocytes % (A) 10 %; MCH 26.8 pg (25.0-35.0); MCHC 33.6 g/dL (31.0-37.0); MCV 79.9 fL (80.0-100.0); Monocytes # (A) 0.3 k/uL (0-1.0); Monocytes % (A) 4 %; Neutrophils % (A) 84 %; Platelet Count 324 k/uL (150-450); RBC 4.43 m/uL (3.80-5.40); RDW 13.7 % (11.5-15.5); WBC 8.3 k/uL (3.8-10.6)
[2022-07-02 10:54] LABS: INR 1.1 (<1.2); Partial Thromboplastin Time 25.7 sec (22.0-30.0); Prothrombin Time 11.4 sec (9.0-12.0)
--- NOTE | 2022-07-02 11:09 | P.CNPUL ---
History of Present Illness Consult date: 07/02/22 Reason for consult: lung mass History of present illness: This is a 67-year-old female patient, chronic smoker, who presented to the most appropriate because of shortness of breath. No hemoptysis. No pleurisy. No chest pain. She's been gradually losing weight. In the emergency, the patient was found to be in A. fib with RVR. At same time, a CT of the chest was done and the CTA showed a large tumor measuring 5 x 4 cm in size in the left hilum causing atelectasis of the left upper lobe. There is significant obstruction of the left upper lobe airway branches. There is also a small left-sided pleural effusion and pericardial effusion. There is significant atelectasis of the left upper lobe secondary to this obstructing left hilar mass. There is also evidence of background emphysema. At this point in time, the patient on 5 L of oxygen nasal cannula. Initially she was on a BiPAP that was discontinued. She is on a Cardizem drip for rate control and because of atrial fibrillation. The current cardiac rhythm is sinus. She did convert. She remains on IV heparin. She is short of breath. Note that this patient has not seek any medical attention and she has not followed up with any primary care over the years. She has not utilized any pulmonary vascular medications or inhalers. Review of Systems Constitutional: Reports fatigue, Reports weakness Eyes: denies as per HPI, denies blurred vision, denies bulging eye, denies decreased vision, denies diplopia, denies discharge, denies dry eye, denies irritation, denies itching, denies pain, denies photophobia, denies loss of peripheral vision, denies loss of vision, denies tunnel vision/blind spots Ears: deny: decreased hearing, ear discharge, earache, tinnitus Ears, nose, mouth and throat: Reports as per HPI Breasts: absent: as per HPI, change in shape, gynecomastia, masses, nipple discharge, pain, skin changes, swelling Cardiovascular: Reports as per HPI, Reports decreased exercise tolerance, Rep orts dyspnea on exertion Respiratory: Reports cough, Reports dyspnea Gastrointestinal: Reports as per HPI Genitourinary: Reports as per HPI Menstruation: Reports as per HPI Musculoskeletal: Reports as per HPI Musculoskeletal: absent: ankle pain, ankle stiffness, ankle swelling Integumentary: Reports as per HPI Neurological: Reports as per HPI Psychiatric: Reports as per HPI Endocrine: Reports as per HPI Past Medical History Past Medical History: No Reported History, COPD History of Any Multi-Drug Resistant Organisms: None Reported Past Surgical History: Tubal Ligation Past Psychological History: No Psychological Hx Reported Smoking Status: Current every day smoker Past Alcohol Use History: None Reported Past Drug Use History: None Reported - Past Family History Mother Family Medical History: COPD Medications and Allergies Home Medications Medication Instructions Recorded Confirmed Type No Known Home Medications 07/01/22 07/01/22 History Allergies Allergy/AdvReac Type Severity Reaction Status Date / Time No Known Allergies Allergy Verified 07/01/22 20:47 Physical Exam Vitals: Vital Signs Temp Pulse Pulse Resp BP BP Pulse Ox 07/02/22 08:00 97.5 F L 96 25 H 125/68 94 L 07/02/22 04:31 07/02/22 03:37 98.1 F 110 H 26 H 142/67 95 07/02/22 03:00 110 H 28 H 07/02/22 00:10 128 H 32 H 96 07/02/22 00:00 134/79 07/01/22 23:50 111 H 26 H 120/83 97 07/01/22 23:40 107 H 28 H 134/87 96 07/01/22 23:33 07/01/22 23:30 113 H 34 H 127/82 98 07/01/22 23:20 114 H 33 H 126/89 98 07/01/22 23:10 115 H 32 H 120/83 98 07/01/22 23:00 115 H 29 H 133/86 99 07/01/22 22:50 118 H 32 H 119/84 98 07/01/22 22:40 113 H 33 H 113/82 98 07/01/22 22:30 117 H 31 H 136/90 97 07/01/22 22:21 116 H 35 H 136/90 98 07/01/22 22:20 112 H 43 H 117/82 97 07/01/22 22:10 113 H 33 H 111/88 98 07/01/22 22:08 113 H 32 H 98 07/01/22 22:00 179 H 33 H 116/89 98 07/01/22 21:50 115 H 32 H 116/89 98 07/01/22 21:40 116 H 32 H 116/89 99 07/01/22 21:30 115 H 32 H 129/82 99 07/01/22 21:20 161 H 34 H 129/82 100 07/01/22 21:19 122 H 32 H 129/82 100 07/01/22 21:10 122 H 132/93 100 07/01/22 21:05 128 H 07/01/22 21:00 122 H 30 H 132/93 100 07/01/22 20:51 124 H 07/01/22 20:50 125 H 28 H 132/93 100 07/01/22 20:45 118 H 35 H 141/68 100 07/01/22 20:06 97 F L 120 H 32 H 146/90 90 L FiO2 07/02/22 08:00 40 07/02/22 04:31 40 07/02/22 03:37 40 07/02/22 03:00 07/02/22 00:10 07/02/22 00:00 07/01/22 23:50 07/01/22 23:40 07/01/22 23:33 40 07/01/22 23:30 07/01/22 23:20 07/01/22 23:10 07/01/22 23:00 07/01/22 22:50 07/01/22 22:40 07/01/22 22:30 07/01/22 22:21 07/01/22 22:20 07/01/22 22:10 07/01/22 22:08 07/01/22 22:00 07/01/22 21:50 07/01/22 21:40 07/01/22 21:30 07/01/22 21:20 07/01/22 21:19 07/01/22 21:10 07/01/22 21:05 07/01/22 21:00 07/01/22 20:51 40 07/01/22 20:50 07/01/22 20:45 07/01/22 20:06 Intake and Output 07/01/22 07/02/22 07/02/22 21:59 06:59 14:59 Intake Total Output Total 150 Balance -150 Intake: Intake, IV Titration Amount Diltiazem 125 mg In Sodium Chloride 0.9% 100 ml @ 5 MG/HR 5 mls/hr IV .Q24H [facility] Rx#:[id number] Diltiazem 125 mg In Sodium Chloride 0.9% 100 ml @ 5 MG/HR 5 mls/hr IV .Q24H [facility] Rx#:[id number] Output: Urine 150 Other: Voiding Method External Catheter Weight awake and alert with mild degree of respiratory distress and a body mass index of 22.7. The patient is on 5 L of oxygen by nasal cannula Head exam was generally normal. There was no scleral icterus or corneal arcus. Mucous membranes were moist. Neck was supple and without jugular venous distension, thyromegaly, or carotid bruits. Carotids were easily palpable bilaterally. There was no adenopathy. lung sounds are markedly diminished bilaterally along with scattered expiratory wheezes. Breasts other significant events in the left lung base Cardiac exam revealed the PMI to be normally situated and sized. The rhythm was regular and no extrasystoles were noted during several minutes of auscultation. The first and second heart sounds were normal and physiologic splitting of the second heart sound was noted. There were no murmurs, rubs, clicks, or gallops. Overall heart sounds are distant and the patient is converted back into normal sinus rhythm. Abdominal exam revealed normal bowel sounds. The abdomen was soft, non-tender, and without masses, organomegaly, or appreciable enlargement of the abdominal aorta. Examination of the extremities revealed easily palpable radial, femoral and pedal pulses. There was no cyanosis, clubbing or edema. Examination of the skin revealed no evidence of significant rashes, suspicious appearing nevi or other concerning lesions. Results - Laboratory Findings CBC and BMP: 07/02/22 10:37 07/01/22 20:36 PT/INR, D-dimer PT 11.4 sec (9.0-12.0) 07/02/22 10:37 INR 1.1 (<1.2) 07/02/22 10:37 D-Dimer 2.16 mg/L FEU (<0.60) H 07/01/22 20:36 Abnormal lab findings: Abnormal Labs 07/01/22 07/01/22 07/01/22 10:14 20:36 20:36 WBC 12.9 H MCV Plt Count 459 H Neutrophils # 9.8 H Lymphocytes # D-Dimer Sodium 133 L Chloride 97 L Carbon Dioxide 20 L Glucose 136 H Plasma Lactic Acid Loco ALT 35 H Alkaline Phosphatase 148 H Troponin I Ur Specific [place] >1.050 H Urine Protein 1+ H Urine Ketones 2+ H Urine Mucus Rare H 07/01/22 07/01/22 07/01/22 20:36 20:36 20:36 WBC MCV Plt Count Neutrophils # Lymphocytes # D-Dimer 2.16 H Sodium Chloride Carbon Dioxide Glucose Plasma Lactic Acid Loco 4.9 H* ALT Alkaline Phosphatase Troponin I 0.051 H* Ur Specific [place] Urine Protein Urine Ketones Urine Mucus 07/02/22 07/02/22 07/02/22 00:08 04:40 10:37 WBC MCV 79.9 L Plt Count Neutrophils # Lymphocytes # 0.9 L D-Dimer Sodium Chloride Carbon Dioxide Glucose Plasma Lactic Acid Loco ALT Alkaline Phosphatase Troponin I 0.035 H* 0.036 H* Ur Specific [place] Urine Protein Urine Ketones Urine Mucus - Diagnostic Findings Chest x-ray: image reviewed CT scan - chest: image reviewed Assessment and Plan Plan: Acute hypoxic respiratory failure, multifactorial, currently on 5 L of oxygen by nasal cannula, earlier the patient was on a BiPAP and her sister's that is somewhat stabilized Left hilar mass measuring 5 x 4 cm in size causing obstruction of the left upper lobe bronchus with significant atelectasis/consolidation of the left upper lobe in addition to a small to moderate-sized left-sided pleural effusion that has some loculation to it and moderate-sized pericardial effusion. This is highly consistent of locally advanced/metastatic primary bronchogenic carcinoma of the lung Possible postobstructive pneumonia left upper lobe Acute COPD exacerbation Shortness of breath secondary to above New-onset atrial fibrillation with rapid ventricular response, currently back into sinus Abnormal troponin secondary to above Chronic smoker Plan I discussed the findings of the CAT scan with the patient I expressed my concerns of an underlying locally advanced or metastatic lung cancer I think the pleural fluid is small and somewhat loculated. Draining the fluid itself may cause a pneumothorax ex vacuo as the right upper lobe is prima shaft and completely obstructed with a hilar mass. I think a easier approach for this patient should be a bronchoscopy and airway inspection where and endobronchial tumor will be able to be identified in the left upper lobe bronchus and the diagnosis can be achieved accordingly. I believe that bronchoscopy would be an easier and less complicated diagnostic procedure for this patient. I would suggest doing a bronchoscopy once her condition is further stabilized. The patient will placed on albuterol HFA 2 puffs 4 times a day Start the patient on Symbicort 2 puffs twice a day Start Spiriva 2.5 2 puffs daily Start the patient on IV Zosyn for any possibility of postobstructive pneumonia and left upper lobe Check pro calcitonin level Management of a defibrillation per cardiology Continue IV heparin for now, do not committed to long-term anticoagulants the left final diagnosis of left hilar masses been achieved and established Extremely poor prognosis We'll continue to follow a pressure
[2022-07-02] MEDS: HEPARIN SOD,PORK IN 0.45% NACL 25,000 UNIT in 0.45% NACL 1 250ML.BAG IV SCH (11:30)
[2022-07-02] MEDS: DILTIAZEM ORAL 30 MG TAB PO SCH ×3 (11:33→21:34)
[2022-07-02 11:58] LABS: T4, Free (Free Thyroxine) 1.99 ng/dL (0.78-2.19)
--- NOTE | 2022-07-02 14:03 | P.PN ---
Subjective Progress Note Date: 07/02/22 Hospital Course: Patient is a 67-year-old female with a PMH of tobacco abuse and no contact with a physician for over a decade who presents to the emergency room with complaints of shortness of breath. Vital signs upon arrival at the emergency room were BP 146/90, SpO2 90% on room air, temp 97F, pulse 120, respiratory rate 32. Left evaluation was remarkable for troponin 0.051, d-dimer 2.16, proBNP 1670, WBC count 12.9, platelets 459, lactic acid 4.9, and sodium 133. Chest CTA revealed a likely 5 cm x 4 cm mass at the left perihilum with significant narrowing of the branches of the left bronchus as well as a large left-sided pleural effusion with moderate sized pericardial effusion. EKG revealed A. fib with RVR at 182 bpm. patient admitted for acute hypoxic respiratory failure, with pulmonology and cardiology consult. Subjective: Patient seen and examined at bedside. No acute events overnight. Remains on BiPAP. Claims that her shortness of breath is improved on BiPAP. She denies any chest pain, abdominal pain, nausea, vomiting, diarrhea, constipation. Pertinent positives and negatives as discussed above, a complete review of systems was performed and all other systems are negative. Vitals Signs Reviewed. General: nontoxic, no distress, appears older than at stated age Derm: warm, dry Head: atraumatic, normocephalic, symmetric Eyes: EOMI, no lid lag, anicteric sclera Mouth: no lip lesion, mucus membranes moist Cardiovascular: S1S2 reg, no murmur Lungs: Bilateral rhonchi, no accessory muscle use, on BiPAP Abdominal: soft, nontender to palpation, no guarding, no appreciable organomegaly Ext: no gross muscle atrophy, no edema, no contractures Neuro: CN II-XI grossly intact, no focal neuro deficits Psych: Alert, oriented, appropriate affect Data Reviewed Today: Pertinent Labs: WBC 8.3, hemoglobin 11.9, TSH 0.455, T4 1.99, troponin peaked at 0.051, proBNP 1670 Assessment and Plan: Active: Acute hypoxic respiratory failure Large left pleural effusion with possible underlying mass Acute COPD exacerbation Possible postobstructive pneumonia left upper lobe Atrial fibrillation with RVR Elevated troponin Low TSH, normal free T4 Nicotine dependence - Pulmonology note reviewed: Considering a bronchoscopy once patient is stable started on Symbicort, Spiriva, IV Zosyn, progressed to independent - Cardiology note reviewed: Started on oral Cardizem, also started on IV heparin drip - Echocardiogram pending -Heparin drip being titrated based on the PTT, no active bleeding, CBC tomorrow - Patient is currently rate controlled - Troponin down trending, likely in the setting of metastatic ischemia -Borderline low TSH, normal free T4, possibly euthyroid sick syndrome -Counseled regarding smoking cessation Resolved: Lactic acidosis DVT ppx: Heparin drip Code status: DNR/DNI Anticipated discharge place: Pending clinical course Anticipated discharge time: Pending clinical course Objective - Vital Signs Vital signs: Vital Signs Temp 97.0 F L 07/02/22 12:00 Pulse 91 07/02/22 12:00 Resp 22 07/02/22 12:00 BP 113/64 07/02/22 12:00 Pulse Ox 91 L 07/02/22 12:00 FiO2 40 07/02/22 08:00 Intake & Output 07/01/22 07/02/22 07/02/22 17:59 06:59 18:59 Intake Total Output Total 150 Balance -150 Weight Intake: Intake, IV Titration Amount Diltiazem 125 mg In Sodium Chloride 0.9% 100 ml @ 5 MG/HR 5 mls/hr IV .Q24H [facility] Rx#:[id number] Diltiazem 125 mg In Sodium Chloride 0.9% 100 ml @ 5 MG/HR 5 mls/hr IV .Q24H [facility] Rx#:[id number] Output: Urine 150 Other: Voiding Method External Catheter - Labs CBC & Chem 7: 07/02/22 10:37 07/01/22 20:36 Labs: Abnormal Lab Results - Last 24 Hours (Table) 07/01/22 07/01/22 07/01/22 Range/Units 10:14 20:36 20:36 WBC 12.9 H (3.8-10.6) k/uL MCV (80.0-100.0) fL Plt Count 459 H (150-450) k/uL Neutrophils # 9.8 H (1.3-7.7) k/uL Lymphocytes # (1.0-4.8) k/uL D-Dimer (<0.60) mg/L FEU Sodium 133 L (137-145) mmol/L Chloride 97 L (98-107) mmol/L Carbon Dioxide 20 L (22-30) mmol/L Glucose 136 H (74-99) mg/dL Plasma Lactic Acid Loco (0.7-2.0) mmol/L ALT 35 H (4-34) U/L Alkaline Phosphatase 148 H (38-126) U/L Troponin I (0.000-0.034) ng/mL TSH (0.465-4.680) mIU/L Ur Specific [place] >1.050 H (1.001-1.035) Urine Protein 1+ H (Negative) Urine Ketones 2+ H (Negative) Urine Mucus Rare H (None) /hpf 07/01/22 07/01/22 07/01/22 Range/Units 20:36 20:36 20:36 WBC (3.8-10.6) k/uL MCV (80.0-100.0) fL Plt Count (150-450) k/uL Neutrophils # (1.3-7.7) k/uL Lymphocytes # (1.0-4.8) k/uL D-Dimer 2.16 H (<0.60) mg/L FEU Sodium (137-145) mmol/L Chloride (98-107) mmol/L Carbon Dioxide (22-30) mmol/L Glucose (74-99) mg/dL Plasma Lactic Acid Loco 4.9 H* (0.7-2.0) mmol/L ALT (4-34) U/L Alkaline Phosphatase (38-126) U/L Troponin I 0.051 H* (0.000-0.034) ng/mL TSH (0.465-4.680) mIU/L Ur Specific [place] (1.001-1.035) Urine Protein (Negative) Urine Ketones (Negative) Urine Mucus (None) /hpf 07/02/22 07/02/22 07/02/22 Range/Units 00:08 04:40 10:37 WBC (3.8-10.6) k/uL MCV 79.9 L (80.0-100.0) fL Plt Count (150-450) k/uL Neutrophils # (1.3-7.7) k/uL Lymphocytes # 0.9 L (1.0-4.8) k/uL D-Dimer (<0.60) mg/L FEU Sodium (137-145) mmol/L Chloride (98-107) mmol/L Carbon Dioxide (22-30) mmol/L Glucose (74-99) mg/dL Plasma Lactic Acid Loco (0.7-2.0) mmol/L ALT (4-34) U/L Alkaline Phosphatase (38-126) U/L Troponin I 0.035 H* 0.036 H* (0.000-0.034) ng/mL TSH (0.465-4.680) mIU/L Ur Specific [place] (1.001-1.035) Urine Protein (Negative) Urine Ketones (Negative) Urine Mucus (None) /hpf 07/02/22 Range/Units 10:37 WBC (3.8-10.6) k/uL MCV (80.0-100.0) fL Plt Count (150-450) k/uL Neutrophils # (1.3-7.7) k/uL Lymphocytes # (1.0-4.8) k/uL D-Dimer (<0.60) mg/L FEU Sodium (137-145) mmol/L Chloride (98-107) mmol/L Carbon Dioxide (22-30) mmol/L Glucose (74-99) mg/dL Plasma Lactic Acid Loco (0.7-2.0) mmol/L ALT (4-34) U/L Alkaline Phosphatase (38-126) U/L Troponin I (0.000-0.034) ng/mL TSH 0.455 L (0.465-4.680) mIU/L Ur Specific [place] (1.001-1.035) Urine Protein (Negative) Urine Ketones (Negative) Urine Mucus (None) /hpf
[2022-07-02] MEDS: PIPERACILLIN-TAZOBACTAM 3.375 GM in SODIUM CHLORIDE 0.9% 100 ML IVPB SCH ×2 (16:19→23:40)
[2022-07-02] MEDS: HEPARIN SODIUM 1,000 UN/ML (10ML VL) IV PRN (19:03)
[2022-07-02] MEDS: SYMBICORT 160-4.5 MCG INHALER INHALATION SCH (20:13)
[2022-07-03 08:32] LABS: Basophils % (A) 0 %; Eosinophils # (A) 0.1 k/uL (0-0.7); Eosinophils % (A) 1 %; HCT 35.1 % (34.0-46.0); HGB 11.4 gm/dL (11.4-16.0); Lymphocytes # (A) 1.4 k/uL (1.0-4.8); Lymphocytes % (A) 13 %; MCH 26.5 pg (25.0-35.0); MCHC 32.6 g/dL (31.0-37.0); MCV 81.4 fL (80.0-100.0); Mean Platelet Volume 9.1; Monocytes # (A) 0.4 k/uL (0-1.0); Monocytes % (A) 4 %; Neutrophils # (A) 8.2 k/uL (1.3-7.7); Neutrophils % (A) 80 %; Platelet Count 324 k/uL (150-450); RBC 4.31 m/uL (3.80-5.40); RDW 13.8 % (11.5-15.5); WBC 10.2 k/uL (3.8-10.6)
[2022-07-03] MEDS: TIOTROPIUM 2.5 MCG INHALER INHALATION SCH (08:42)
[2022-07-03] MEDS: SYMBICORT 160-4.5 MCG INHALER INHALATION SCH ×2 (08:42→21:20)
[2022-07-03] MEDS: ALBUTEROL HFA INHALER INHALATION SCH ×4 (08:42→21:20)
[2022-07-03 08:43] LABS: African American GFR (CKD) >90 (>60 ml/min/1.73 sqM); Anion Gap 7 mmol/L; Blood Urea Nitrogen 12 mg/dL (7-17); Calcium 7.8 mg/dL (8.4-10.2); Carbon Dioxide 19 mmol/L (22-30); Chloride 107 mmol/L (98-107); Glucose 100 mg/dL (74-99); Non-African American GFR(CKD) >90 (>60 ml/min/1.73 sqM); Potassium 3.7 mmol/L (3.5-5.1); Sodium 133 mmol/L (137-145)
[2022-07-03] MEDS: PIPERACILLIN-TAZOBACTAM 3.375 GM in SODIUM CHLORIDE 0.9% 100 ML IVPB SCH ×2 (08:56→16:45)
[2022-07-03] MEDS: DILTIAZEM ORAL 30 MG TAB PO SCH (08:56)
[2022-07-03 09:02] LABS: INR 1.1 (<1.2); Prothrombin Time 11.1 sec (9.0-12.0)
--- NOTE | 2022-07-03 09:07 | US ---
EXAMINATION TYPE: US chest DATE OF EXAM: 07/03/2022 COMPARISON: CT 07/02/2022 CLINICAL HISTORY: Left pleural effusion. COPD, pleural effusion TECHNIQUE: Targeted ultrasound of the posterior lower Left EXAM MEASUREMENTS: Left Pleural Effusion pocket size: 10.0 cm Left skin surface to fluid distance: 3.1 cm Left side marked for possible thoracentesis outside the dept. Pulmonologists are able to review the images in the patient?s EMR. IMPRESSIONS: Moderate left pleural effusion.
--- NOTE | 2022-07-03 10:36 | CA ---
Transthoracic Echo Report Name: Rubina Prieto Age: 67 Gender: F : 1955 Exam Date: 07/03/2022 08:15 Exam Location: [facility] Ht (in): 61 Wt (lb): 97 Ordering Physician: Nenita Mandujano Attending/Referring Phys: [id number], Nazia Pipe Inspector Beronica Johnson RDCS Procedure CPT: Indications: new onset AF, pericardial effusion Cardiac Hx: Technical Quality: Good Contrast 1: Total Dose (mL): Contrast 2: Total Dose (mL): MEASUREMENTS (Male / Female) Normal Values 2D ECHO LV Diastolic Diameter PLAX 3.6 cm 4.2 - 5.9 / 3.9 - 5.3 cm LV Systolic Diameter PLAX 2.3 cm IVS Diastolic Thickness 1.0 cm 0.6 - 1.0 / 0.6 - 0.9 cm LVPW Diastolic Thickness 0.8 cm 0.6 - 1.0 / 0.6 - 0.9 cm LV Relative Wall Thickness 0.5 RV Internal Dim ED PLAX 2.8 cm LA Systolic Diameter LX 3.4 cm 3.0 - 4.0 / 2.7 - 3.8 cm LV Diastolic Volume MOD BP 38.7 cm??? 67 - 155 / 56 - 104 cm??? LV Systolic Volume MOD BP 16.4 cm??? 22 - 58 / 19 - 49 cm??? LV Ejection Fraction MOD BP 57.5 % >= 55 % LV Diastolic Volume MOD 4C 38.5 cm??? LV Systolic Volume MOD 4C 15.2 cm??? LV Ejection Fraction MOD 4C 60.6 % LV Diastolic Length 4C 6.5 cm LV Systolic Length 4C 5.4 cm LV Diastolic Volume MOD 2C 36.4 cm??? LV Systolic Volume MOD 2C 17.2 cm??? LV Ejection Fraction MOD 2C 52.9 % LV Diastolic Length 2C 6.0 cm LV Systolic Length 2C 5.0 cm LA Volume 32.3 cm??? 18 - 58 / 22 - 52 cm??? M-MODE Aortic Root Diameter MM 3.1 cm MV E Point Septal Separation 1.5 cm AV Cusp Separation MM 1.6 cm DOPPLER AV Peak Velocity 122.4 cm/s AV Peak Gradient 6.0 mmHg MV Area PHT 3.4 cm??? Mitral E Point Velocity 95.5 cm/s Mitral A Point Velocity 92.8 cm/s Mitral E to A Ratio 1.0 MV Deceleration Time 222.9 ms MV E' Velocity 8.7 cm/s Mitral E to MV E' Ratio 10.9 TR Peak Velocity 278.3 cm/s TR Peak Gradient 31.0 mmHg Right Ventricular Systolic Press 35.8 mmHg FINDINGS Left Ventricle Left ventricular ejection fraction is estimated at 55-60 %. Normal left ventricular systolic function with no obvious regional wall motion abnormalities. Left ventricular wall thickness normal. Right Ventricle Normal right ventricular size and function. Mild pulmonary hypertension. Right Atrium Normal right atrial size. Left Atrium Normal left atrial size. Mitral Valve Structurally normal mitral valve. No mitral stenosis, regurgitation or prolapse. Aortic Valve Trileaflet aortic valve. No aortic valve stenosis or regurgitation. Tricuspid Valve Structurally normal tricuspid valve. Mild tricuspid regurgitation. Pulmonic Valve Structurally normal pulmonic valve. No pulmonic regurgitation. Pericardium Moderate to large pericardial effusion Aorta Normal size aortic root and proximal ascending aorta. CONCLUSIONS Normal LV systolic function Moderate circumferential pericardial effusion. Possible thrombosis in the pericardial space. The mitral and tricuspid inflow with respiration was not performed. The ambulance physiology was not assessed Previewed by: Dr. Kulwinder Herrmann MD (Electronically Signed) Final Date: 03 July 2022 10:36
[2022-07-03 12:14] VITALS: BMI 18.3
--- NOTE | 2022-07-03 13:38 | P.PN ---
Subjective Progress Note Date: 07/03/22 Principal diagnosis: Acute hypoxic respiratory failure secondary to left hilar mass, pleural effusion, COPD, and atrial fibrillation with RVR This is a 67-year-old female patient, chronic smoker, who presented to the most appropriate because of shortness of breath. No hemoptysis. No pleurisy. No chest pain. She's been gradually losing weight. In the emergency, the patient was found to be in A. fib with RVR. At same time, a CT of the chest was done and the CTA showed a large tumor measuring 5 x 4 cm in size in the left hilum causing atelectasis of the left upper lobe. There is significant obstruction of the left upper lobe airway branches. There is also a small left-sided pleural effusion and pericardial effusion. There is significant atelectasis of the left upper lobe secondary to this obstructing left hilar mass. There is also evidence of background emphysema. At this point in time, the patient on 5 L of oxygen nasal cannula. Initially she was on a BiPAP that was discontinued. She is on a Cardizem drip for rate control and because of atrial fibrillation. The current cardiac rhythm is sinus. She did convert. She remains on IV heparin. She is short of breath. Note that this patient has not seek any medical attention and she has not followed up with any primary care over the years. She has not utilized any pulmonary vascular medications or inhalers. Reevaluated today on 07/03/2022, patient remains on the cardiac floor, she seems to be in moderate respiratory distress, remains in atrial fibrillation with RVR, and that being addressed by cardiology. Patient is on heparin she is also on Cardizem which was transitioned to oral Cardizem. Patient is empirically on antibiotics for presumptive postobstructive pneumonitis although I believe the patient clearly has a left hilar mass with complete opacification of the left upper lobe, and she has a left pleural effusion, this is all consistent with bronchogenic carcinoma. Patient is not stable enough to consider bronchoscopy at this point, and I have a strong feeling that the patient will develop trapped lung if would proceed with a left sided thoracentesis. Significant lung tissue is noted in the left pleural space, which makes thoracentesis a bit more difficult. Not to mention the patient is on relatively high O2, she is now on 40% FiO2 with marginal O2 saturation, she is also on BiPAP intermittently. I explained to the patient that she may need to be on mechanical ventilation in order to proceed with bronchoscopy and she clearly does not want to be placed on any life-support machinery no matter what. Labs today were all reviewed. And she clearly had relatively normal thyroid profile, echocardiogram showed good LV function and mild pulmonary hypertension. Objective - Vital Signs Vital signs: Vital Signs Temp 98.0 F 07/03/22 08:46 Pulse 115 H 07/03/22 12:06 Resp 19 07/03/22 12:06 BP 119/66 07/03/22 12:06 Pulse Ox 95 07/03/22 12:06 FiO2 40 07/03/22 11:31 Intake & Output 07/02/22 07/03/22 07/03/22 18:59 06:59 18:59 Intake Total 760 351.833 63.197 Output Total 600 1 Balance 160 351.833 62.197 Weight 44 kg 44 kg Intake: IV 160 .9 NS 160 Intake, IV Titration 111.833 63.197 Amount Heparin Sod,Pork in 0.45% 111.833 63.197 NaCl 25,000 unit In 0.45 % NaCl 1 250ml.bag @ 12 UNITS/KG/HR 6.532 mls/hr IV .Q24H [facility] Rx#: [id number] Oral 600 240 Output: Urine 600 Stool 1 Other: Voiding Method External Catheter External Catheter External Catheter # Voids 2 1 0 - Exam Physical Exam: Revealed a 67-year-old female in moderate respiratory distress, on BiPAP. Head: Atraumatic, normocephalic. HEENT:[Neck is supple.] [No neck masses.] [No thyromegaly.] [No JVD.] Chest: [Crackles and rhonchi noted bilaterally. Cardiac Exam: Irregular irregular rhythm. [Normal S1 and S2, no S3 gallop, no murmur.] Abdomen: [Soft, nontender, no megaly, no rebound, no guarding, normal bowel sounds.] Extremities: [No clubbing, no edema, no cyanosis.] Neurological Exam: [No focal neurologic deficit.] Alert oriented 3. Psychiatric: Normal mood affect and normal mental status examination. Skin: No rashes Musculoskeletal: No deformities and no limitation in range of motion - Labs CBC & Chem 7: 07/03/22 08:19 07/03/22 08:19 Labs: Abnormal Lab Results - Last 24 Hours (Table) 07/03/22 07/03/22 07/03/22 Range/Units 01:00 08:19 08:19 Neutrophils # 8.2 H (1.3-7.7) k/uL APTT 31.0 H (22.0-30.0) sec Sodium 133 L (137-145) mmol/L Carbon Dioxide 19 L (22-30) mmol/L Creatinine 0.51 L (0.52-1.04) mg/dL Glucose 100 H (74-99) mg/dL Calcium 7.8 L (8.4-10.2) mg/dL 07/03/22 07/03/22 Range/Units 08:19 11:25 Neutrophils # (1.3-7.7) k/uL APTT 30.7 H 34.8 H (22.0-30.0) sec Sodium (137-145) mmol/L Carbon Dioxide (22-30) mmol/L Creatinine (0.52-1.04) mg/dL Glucose (74-99) mg/dL Calcium (8.4-10.2) mg/dL Microbiology - Last 24 Hours (Table) 07/01/22 20:30 Blood Culture - Preliminary Blood No Growth after 24 hours Assessment and Plan Assessment: Impression: Acute hypoxic respiratory failure, multifactorial Left hilar mass highly suspicious for obstruction of left upper lobe bronchus/consistent with bronchogenic carcinoma Strongly suspect malignant left pleural effusion Moderate sized pericardial effusion Acute exacerbation of COPD new onset atrial fibrillation with RVR Tobacco dependence syndrome Recommendation: Explained to the patient the findings on her CT of the chest Discussed the option of bronchoscopy however patient may require to be on mechanical ventilation to safely perform bronchoscopy however the patient needs to be stabilized further Continue bronchodilators Continue antibiotics Continue treatment for her atrial fibrillation as per cardiology Explained to the patient that she may need bronchoscopy and she needs to be on mechanical ventilation for the procedure, clearly refused to do so. Patient would never want to be on any life-support machinery according to her. Suggest considering comfort care measures if the patient does not improve much over the next couple of days. Prognosis is extremely poor and guarded, and the findings are highly consistent with bronchogenic carcinoma/advanced. Time with Patient: Less than 30
--- NOTE | 2022-07-03 15:09 | P.PN ---
Subjective Progress Note Date: 07/03/22 Patient seen and examined at bedside. Patient seemed like she was in respiratory distress. Patient denied chest pain. Patient states that she just feels uncomfortable and is requesting hospice. Objective - Vital Signs Vital signs: Vital Signs Temp 98.0 F 07/03/22 08:46 Pulse 115 H 07/03/22 14:06 Resp 19 07/03/22 14:06 BP 119/66 07/03/22 12:06 Pulse Ox 95 07/03/22 12:06 FiO2 40 07/03/22 11:31 Intake & Output 07/02/22 07/03/22 07/03/22 18:59 06:59 18:59 Intake Total 760 351.833 63.197 Output Total 600 1 Balance 160 351.833 62.197 Weight 44 kg 44 kg Intake: IV 160 .9 NS 160 Intake, IV Titration 111.833 63.197 Amount Heparin Sod,Pork in 0.45% 111.833 63.197 NaCl 25,000 unit In 0.45 % NaCl 1 250ml.bag @ 12 UNITS/KG/HR 6.532 mls/hr IV .Q24H [facility] Rx#: [id number] Oral 600 240 Output: Urine 600 Stool 1 Other: Voiding Method External Catheter External Catheter External Catheter # Voids 2 1 0 - Exam General: [non toxic], [no distress], [older than stated age] Derm: [warm], [dry] Head: [atraumatic], [normocephalic], [symmetric] Eyes: [EOMI], [no lid lag], [anicteric sclera] Mouth: [no lip lesion], [mucus membranes moist] Cardiovascular: [S1S2 reg], [no murmur], [positive posterior tibial pulse bilateral], Lungs: [Bilateral wheezing] Abdominal: [soft], [ nontender to palpation], [no guarding], [no appreciable organomegaly] Ext: [no gross muscle atrophy], [no edema], [no contractures] Neuro: [ CN II-XI grossly intact], [no focal neuro deficits] Psych: [Alert], [oriented], [appropriate affect] - Labs CBC & Chem 7: 07/03/22 08:19 07/03/22 08:19 Labs: Abnormal Lab Results - Last 24 Hours (Table) 07/03/22 07/03/22 07/03/22 Range/Units 01:00 08:19 08:19 Neutrophils # 8.2 H (1.3-7.7) k/uL APTT 31.0 H (22.0-30.0) sec Sodium 133 L (137-145) mmol/L Carbon Dioxide 19 L (22-30) mmol/L Creatinine 0.51 L (0.52-1.04) mg/dL Glucose 100 H (74-99) mg/dL Calcium 7.8 L (8.4-10.2) mg/dL 07/03/22 07/03/22 Range/Units 08:19 11:25 Neutrophils # (1.3-7.7) k/uL APTT 30.7 H 34.8 H (22.0-30.0) sec Sodium (137-145) mmol/L Carbon Dioxide (22-30) mmol/L Creatinine (0.52-1.04) mg/dL Glucose (74-99) mg/dL Calcium (8.4-10.2) mg/dL Microbiology - Last 24 Hours (Table) 07/01/22 20:30 Blood Culture - Preliminary Blood No Growth after 24 hours Assessment and Plan Assessment: Assessment and Plan: Acute hypoxic respiratory failure Large left pleural effusion with possible underlying mass Acute COPD exacerbation Possible postobstructive pneumonia left upper lobe Atrial fibrillation with RVR Elevated troponin Low TSH, normal free T4 Nicotine dependence - Pulmonology note reviewed: Considering a bronchoscopy once patient is stable started on Symbicort, Spiriva, IV Zosyn, progressed to independent if bronchoscopy is warranted she needs to be on mechanical ventilation for the procedure, clearly refused to do so. Patient would never want to be on vent sup port. Patient is requesting hospice. Prognosis is guarded -Hospice consult - Cardiology note reviewed: Started on oral Cardizem, also started on IV heparin drip - Echocardiogram pending -Heparin drip being titrated based on the PTT, no active bleeding, CBC tomorrow - Patient is currently rate controlled - Troponin down trending, likely in the setting of metastatic ischemia -Borderline low TSH, normal free T4, possibly euthyroid sick syndrome -Counseled regarding smoking cessation Resolved: Lactic acidosis
[2022-07-03] MEDS: LORazepam 2 MG/ML INJ IV PRN ×2 (15:10→21:37)
[2022-07-03] MEDS: HEPARIN SOD,PORK IN 0.45% NACL 25,000 UNIT in 0.45% NACL 1 250ML.BAG IV SCH (15:41)
--- NOTE | 2022-07-03 16:12 | PN ---
PROGRESS NOTE SUBJECTIVE: Ms. Prieto is a lady, who has history of smoking. She came into the hospital with increasing shortness of breath, was found to have new-onset atrial fibrillation; however, she has a lung mass with left-sided pleural effusion and pneumonia. Her atrial fibrillation rate is faster. I am increasing the Cardizem from 30 to 60 mg t.i.d. She has a large left-sided pleural effusion, consolidation, and mass, possible malignancy, being worked up by Pulmonology. Cardiac-woodson, she remains in atrial fibrillation, rate is slightly faster. She is very cachectic. She has a left hilar mass, possible malignancy. May have thoracentesis today. OBJECTIVE: VITAL SIGNS: Blood pressure is 120/70. Pulse rate is about 110 to 120, irregular. NECK: JVD 1 cm. HEART: S1 and S2. Irregularity in rhythm noted. Heart rate is faster. LUNGS: Reveal diminished air entry. ABDOMEN: Soft. EXTREMITIES: Lower extremities reveal diminished pulses. CENTRAL NERVOUS SYSTEM: Normal. IMPRESSION: 1. Malnourished and cachectic. 2. New-onset atrial fibrillation. 3. Left lung hilar mass, pleural effusion, and obstructive pneumonia. RECOMMENDATIONS: Prognosis remains very poor. I am recommending that we will increase the diltiazem to 60 mg 3 times a day. Prognosis remains poor. MMODL / IJN: [id number] /
[2022-07-03] MEDS: DILTIAZEM ORAL 60 MG TAB PO SCH ×2 (16:45→21:37)
[2022-07-04] MEDS: PIPERACILLIN-TAZOBACTAM 3.375 GM in SODIUM CHLORIDE 0.9% 100 ML IVPB SCH ×2 (00:26→07:57)
[2022-07-04] MEDS: HEPARIN SODIUM 1,000 UN/ML (10ML VL) IV PRN (00:26)
[2022-07-04] MEDS: LORazepam 2 MG/ML INJ IV PRN ×2 (04:00→12:56)
[2022-07-04] MEDS: DILTIAZEM ORAL 60 MG TAB PO SCH (07:57)
[2022-07-04] MEDS: HEPARIN SOD,PORK IN 0.45% NACL 25,000 UNIT in 0.45% NACL 1 250ML.BAG IV SCH (08:02)
[2022-07-04] MEDS: SYMBICORT 160-4.5 MCG INHALER INHALATION SCH (08:46)
[2022-07-04] MEDS: ALBUTEROL HFA INHALER INHALATION SCH ×2 (08:46→11:44)
[2022-07-04] MEDS: TIOTROPIUM 2.5 MCG INHALER INHALATION SCH (08:47)
[2022-07-04 13:51] VITALS: BP 131/76; PULSE 70; RESP 24; TEMP 97.7
--- NOTE | 2022-07-04 14:20 | P.PN ---
Subjective Progress Note Date: 07/04/22 Principal diagnosis: Acute hypoxic respiratory failure secondary to left hilar mass, pleural effusion, COPD, and atrial fibrillation with RVR This is a 67-year-old female patient, chronic smoker, who presented to the most appropriate because of shortness of breath. No hemoptysis. No pleurisy. No chest pain. She's been gradually losing weight. In the emergency, the patient was found to be in A. fib with RVR. At same time, a CT of the chest was done and the CTA showed a large tumor measuring 5 x 4 cm in size in the left hilum causing atelectasis of the left upper lobe. There is significant obstruction of the left upper lobe airway branches. There is also a small left-sided pleural effusion and pericardial effusion. There is significant atelectasis of the left upper lobe secondary to this obstructing left hilar mass. There is also evidence of background emphysema. At this point in time, the patient on 5 L of oxygen nasal cannula. Initially she was on a BiPAP that was discontinued. She is on a Cardizem drip for rate control and because of atrial fibrillation. The current cardiac rhythm is sinus. She did convert. She remains on IV heparin. She is short of breath. Note that this patient has not seek any medical attention and she has not followed up with any primary care over the years. She has not utilized any pulmonary vascular medications or inhalers. Reevaluated today on 07/03/2022, patient remains on the cardiac floor, she seems to be in moderate respiratory distress, remains in atrial fibrillation with RVR, and that being addressed by cardiology. Patient is on heparin she is also on Cardizem which was transitioned to oral Cardizem. Patient is empirically on antibiotics for presumptive postobstructive pneumonitis although I believe the patient clearly has a left hilar mass with complete opacification of the left upper lobe, and she has a left pleural effusion, this is all consistent with bronchogenic carcinoma. Patient is not stable enough to consider bronchoscopy at this point, and I have a strong feeling that the patient will develop trapped lung if would proceed with a left sided thoracentesis. Significant lung tissue is noted in the left pleural space, which makes thoracentesis a bit more difficult. Not to mention the patient is on relatively high O2, she is now on 40% FiO2 with marginal O2 saturation, she is also on BiPAP intermittently. I explained to the patient that she may need to be on mechanical ventilation in order to proceed with bronchoscopy and she clearly does not want to be placed on any life-support machinery no matter what. Labs today were all reviewed. And she clearly had relatively normal thyroid profile, echocardiogram showed good LV function and mild pulmonary hypertension. Reevaluated today on 07/04/2022, patient is basically about the same but she seems to be less short of breath today, she remains on BiPAP, her atrial fibrillation seems to be better controlled. Rate presently is 70/m. Earlier this morning it was in the 140 range. Patient is on BiPAP at 40% FiO2, not in d istress. Approach the patient today about her findings on the chest x-ray and CT of the chest, patient remains reluctant to proceed with thoracentesis or bronchoscopy. Her echocardiogram showed pericardial effusion moderate with possible thromboses in the pericardial space. Patient was seen by cardiology today, Cardizem was increased to 60 mg 3 times a day, no comment regarding her pericardial effusion from cardiology. Objective - Vital Signs Vital signs: Vital Signs Temp 97.7 F 07/04/22 12:00 Pulse 70 07/04/22 12:00 Resp 24 07/04/22 12:00 BP 131/76 07/04/22 12:00 Pulse Ox 90 L 07/04/22 12:00 FiO2 40 07/04/22 12:00 Intake & Output 07/03/22 07/04/22 07/04/22 18:59 06:59 18:59 Intake Total 138.833 308.289 671.648 Output Total 1 1 1 Balance 137.833 307.289 670.648 Weight 44 kg 51.5 kg Intake: IV 450 .9 NS 450 Intake, IV Titration 138.833 108.289 103.648 Amount Heparin Sod,Pork in 0.45% 138.833 108.289 103.648 NaCl 25,000 unit In 0.45 % NaCl 1 250ml.bag @ 12 UNITS/KG/HR 6.532 mls/hr IV .Q24H [facility] Rx#: [id number] Oral 200 118 Output: Stool 1 1 1 Other: Voiding Method External Catheter External Catheter External Catheter # Voids 0 1 # Bowel Movements 1 - Exam Physical Exam: Revealed a 67-year-old female in mild respiratory distress, on BiPAP Head: Atraumatic, normocephalic. HEENT:[Neck is supple.] [No neck masses.] [No thyromegaly.] [No JVD.] Chest: [Crackles and rhonchi noted bilaterally. Cardiac Exam: Irregular irregular rhythm. [Normal S1 and S2, no S3 gallop, no murmur.] Abdomen: [Soft, nontender, no megaly, no rebound, no guarding, normal bowel sounds.] Extremities: [No clubbing, no edema, no cyanosis.] Neurological Exam: [No focal neurologic deficit.] Alert oriented 3. Psychiatric: Normal mood affect and normal mental status examination. Skin: No rashes Musculoskeletal: No deformities and no limitation in range of motion - Labs CBC & Chem 7: 07/03/22 08:19 07/03/22 08:19 Labs: Abnormal Lab Results - Last 24 Hours (Table) 07/03/22 07/03/22 07/04/22 Range/Units 15:02 22:20 05:19 APTT 39.2 H 42.2 H 58.8 H (22.0-30.0) sec Microbiology - Last 24 Hours (Table) 07/01/22 20:30 Blood Culture - Preliminary Blood No Growth after 48 hours Assessment and Plan Assessment: Impression: Acute hypoxic respiratory failure, multifactorial Left hilar mass highly suspicious for obstruction of left upper lobe bronchus/consistent with bronchogenic carcinoma Strongly suspect malignant left pleural effusion Moderate sized pericardial effusion Acute exacerbation of COPD new onset atrial fibrillation with RVR Tobacco dependence syndrome Recommendation: Explained again to the patient the findings on the CT of the chest and chest x- ray Given the option of thoracentesis Given the option of bronchoscopy Made aware of risks and benefits of both procedures Patient remains reluctant to have those done, apparently family is meeting with hospice today, Again I strongly recommend comfort care measures/hospice. Overall prognosis is extremely poor and guarded. Time with Patient: Less than 30
--- NOTE | 2022-07-04 14:32 | P.DS ---
Providers Date of admission: 07/01/22 22:05 Expected date of discharge: 07/04/22 Attending physician: Riaz Carrasquillo MD Consults: 07/01/22 22:44 Consult Physician Urgent Consulting Provider: Margarita Poon Consult Reason/Comments: COPD, pleural effusion Do you want consulting provider notified?: Yes Consult Physician Urgent Consulting Provider: [facility] Consult Reason/Comments: elevated troponin Do you want consulting provider notified?: Yes Primary care physician: Stated None Hospital Course: Patient is a 67-year-old female with a PMH of tobacco abuse and no contact with a physician for over a decade who presents to the emergency room with complaints of shortness of breath. Vital signs upon arrival at the emergency room were BP 146/90, SpO2 90% on room air, temp 97F, pulse 120, respiratory rate 32. Left evaluation was remarkable for troponin 0.051, d-dimer 2.16, proBNP 1670, WBC count 12.9, platelets 459, lactic acid 4.9, and sodium 133. Chest CTA revealed a likely 5 cm x 4 cm mass at the left perihilum with significant narrowing of the branches of the left bronchus as well as a large left-sided pleural effusion with moderate sized pericardial effusion. EKG revealed A. fib with RVR at 182 bpm. Patient admitted for acute hypoxic respiratory failure, with pulmonology and cardiology consult. Patient was started on a heparin drip for anticoa gulation with regard to her A-Fib. Patient started on Zosyn for treatment of pneumonia. She required BiPAP to maintain O2 saturation > 92%. Pulmonology recommended bronchoscopy after stabilization but the patient refused further treatment or diagnostic testing, wanting comfort measures instead. Hospice was consulted and recommended transitioning to [facility]. Patient and family was agreeable. Pertinent studies include chest x-ray, chest CTA, echocardiogram, chest ultrasound. General: moderate distress on BiPAP, appears at stated age Derm: warm, dry Head: atraumatic, normocephalic, symmetric Eyes: EOMI, no lid lag, anicteric sclera Mouth: no lip lesion, mucus membranes moist Ext: no gross muscle atrophy, no edema, no contractures Neuro: no focal neuro deficits Psych: Alert, oriented, appropriate affect Discharge Diagnosis: #Acute hypoxic respiratory failure #Large left pleural effusion with possible underlying mass #Acute COPD exacerbation #Possible postobstructive pneumonia left upper lobe #Atrial fibrillation with RVR #Elevated troponin #Low TSH, normal free T4 #Nicotine dependence This complex discharge took 35 minutes to complete. Patient Condition at Discharge: Critical Plan - Discharge Summary Discharge Rx Participant: No New Discharge Prescriptions: No Action No Known Home Medications Discharge Medication List No Known Home Medications 07/01/22 [History] Follow up Appointment(s)/Referral(s): None,Stated [Primary Care Provider] - 1-2 days Discharge Disposition: DISCH TO HOSPICE MED FACILTY
--- NOTE | 2022-07-04 22:08 | PN ---
PROGRESS NOTE This lady is in and out of atrial fibrillation. She has a lung mass and obstructive pneumonia, and overall prognosis is poor. Cardiac-woodson, no intervention. She is currently on heparin. Dr. Youngblood feels that we should not do any aggressive management and is recommending comfort care, and the patient is thinking about it. No new suggestions from a cardiac standpoint. We will see her as needed. MMODL / IJN: [id number] /
== END 2022-07-04 13:58 | disposition hospice, inpatient (51) | DRG 146 ==
LOC: EC 20:06 → 3SCARD 22:05
PROVIDERS: ADMIT Internal Medicine; ATTEND Internal Medicine
PROC: 5A09357 Assistance with Respiratory Ventilation, Less than 24 Consecutive Hours, Continuous Positive Airway Pressure (ICD-10-PCS; principal; 2022-07-01)
PROC: 0W9B30Z Drainage of Left Pleural Cavity with Drainage Device, Percutaneous Approach (ICD-10-PCS; 2022-07-03)
DX: C10.4 Malignant neoplasm of branchial cleft (principal); J18.9 Pneumonia, unspecified organism; J96.01 Acute respiratory failure with hypoxia; I31.39 Other pericardial effusion (noninflammatory); J91.0 Malignant pleural effusion; J98.11 Atelectasis; E46 Unspecified protein-calorie malnutrition; R64 Cachexia; Z68.21 Body mass index [BMI] 21.0-21.9, adult; Z20.822 Contact with and (suspected) exposure to COVID-19; J43.9 Emphysema, unspecified; R53.1 Weakness; Z66 Do not resuscitate; R79.89 Other specified abnormal findings of blood chemistry; I07.1 Rheumatic tricuspid insufficiency; I27.20 Pulmonary hypertension, unspecified; F17.210 Nicotine dependence, cigarettes, uncomplicated; I48.91 Unspecified atrial fibrillation; Z98.51 Tubal ligation status
CPT/HCPCS: 36415; 36600; 71045; 71275; 76604; 80048; 80053; 81001; 83605; 83735; 83880; 84145; 84439; 84443; 84484; 85025; 85379; 85610; 85730; 87040; 87636; 93005; 93306; 94640; 94660; 96365; 96366; 96368; 96375; 99285

== ENCOUNTER 2022-07-04 13:03 | Inpatient (IN) | payer MEDICAID ==
[2022-07-04] MEDS ORDERED: GLYCOPYRROLATE 0.2 MG/ML 2 ML VIAL IVP PRN (13:20)
[2022-07-04] MEDS ORDERED: MORPHINE SULFATE 2 MG/ML SYRINGE IV PRN (13:20)
[2022-07-04] MEDS ORDERED: ONDANSETRON 4 MG/2 ML VIAL IVP PRN (13:20)
[2022-07-04] MEDS ORDERED: ATROPINE OPHTH SOLN 1% 5ML BTL SUBLINGUAL PRN (13:20)
[2022-07-04] MEDS ORDERED: ACETAMINOPHEN SUPPOSITORY 650 MG SUPP RECTAL PRN (13:20)
[2022-07-04] MEDS ORDERED: DRY MOUTH SPRAY 44.3 SPRAY/44.3 ML SPRAY MUCOUS MEM PRN (13:20)
[2022-07-04] MEDS ORDERED: MORPHINE SULFATE (100 MG/2 ML) 100 MG in SODIUM CHLORIDE 0.9% 100 ML IV SCH (13:30)
[2022-07-04] MEDS ORDERED: SCOPOLAMINE 1 MG/72 HR PATCH TRANSDERM SCH (13:30)
[2022-07-04] MEDS: LORazepam 2 MG/ML INJ IV PRN ×2 (16:48→20:59)
[2022-07-04 18:00] VITALS: BP 139/73
[2022-07-05] MEDS: LORazepam 2 MG/ML INJ IV PRN ×2 (01:02→05:09)
[2022-07-05 05:39] VITALS: PULSE 204
[2022-07-05 05:40] VITALS: RESP 24
--- NOTE | 2022-07-05 15:30 | P.HPIM ---
History of Present Illness H&P Date: 07/05/22 This note will serve as the H&P along with discharge summary. Patient is a 67-year-old female with a PMH of tobacco abuse and no contact with a physician for over a decade who presents to the emergency room with complaints of shortness of breath. Vital signs upon arrival at the emergency room were BP 146/90, SpO2 90% on room air, temp 97F, pulse 120, respiratory rate 32. Left evaluation was remarkable for troponin 0.051, d-dimer 2.16, proBNP 1670, WBC count 12.9, platelets 459, lactic acid 4.9, and sodium 133. Chest CTA revealed a likely 5 cm x 4 cm mass at the left perihilum with significant narrowing of the branches of the left bronchus as well as a large left-sided pleural effusion w ith moderate sized pericardial effusion. EKG revealed A. fib with RVR at 182 bpm. Patient admitted for acute hypoxic respiratory failure, with pulmonology and cardiology consult. Patient was started on a heparin drip for anticoagulation with regard to her A-Fib. Patient started on Zosyn for treatment of pneumonia. She required BiPAP to maintain O2 saturation > 92%. Pulmonology recommended bronchoscopy after stabilization but the patient refused further treatment or diagnostic testing, wanting comfort measures instead. Hospice was consulted and recommended transitioning to [facility]. Patient and family was agreeable. Patient was transitioned to hospice and started on comfort measures including morphine drip and Ativan. Patient was pronounced at 6:27 AM. Patient was pronounced prior to being seen on 07/05. Therefore, no physical exam was performed. Discharge Diagnosis: #Acute hypoxic respiratory failure #Large left pleural effusion with possible underlying mass #Acute COPD exacerbation #Possible postobstructive pneumonia left upper lobe #Atrial fibrillation with RVR #Elevated troponin #Low TSH, normal free T4 #Nicotine dependence Past Medical History Past Medical History: No Reported History, COPD History of Any Multi-Drug Resistant Organisms: None Reported Past Surgical History: Tubal Ligation Past Psychological History: No Psychological Hx Reported Smoking Status: Current every day smoker Past Alcohol Use History: None Reported Past Drug Use History: None Reported - Past Family History Mother Family Medical History: COPD Medications and Allergies Home Medications Medication Instructions Recorded Confirmed Type No Known Home Medications 07/01/22 07/01/22 History Allergies Allergy/AdvReac Type Severity Reaction Status Date / Time No Known Allergies Allergy Verified 07/01/22 20:47 Physical Exam Vitals: Vital Signs Pulse Resp BP Pulse Ox FiO2 07/05/22 05:00 40 07/05/22 04:45 204 H 82 L 40 07/04/22 20:00 24 07/04/22 16:30 60 37 H 139/73 90 L 40 07/04/22 16:03 97 44 H Intake and Output 07/05/22 07/05/22 07/05/22 06:59 14:59 22:59 Intake Total 34.731 Balance 34.731 Intake: Intake, IV Titration 34.731 Amount Morphine Sulfate (100 mg/ 34.731 2 ml) 100 mg In Sodium Chloride 0.9% 100 ml @ 1 MG/HR 1.02 mls/hr IV . Q24H [facility] Rx#:[id number]
== END 2022-07-05 09:47 | disposition expired | DRG 189 ==
LOC: 3SCARD 14:34
PROVIDERS: ADMIT Internal Medicine; ATTEND Internal Medicine
PROC: 5A09357 Assistance with Respiratory Ventilation, Less than 24 Consecutive Hours, Continuous Positive Airway Pressure (ICD-10-PCS; principal; 2022-07-05)
DX: J96.01 Acute respiratory failure with hypoxia (principal); J18.9 Pneumonia, unspecified organism; I31.39 Other pericardial effusion (noninflammatory); J90 Pleural effusion, not elsewhere classified; J44.1 Chronic obstructive pulmonary disease with (acute) exacerbation; I48.91 Unspecified atrial fibrillation; R77.8 Other specified abnormalities of plasma proteins; F17.210 Nicotine dependence, cigarettes, uncomplicated; Z66 Do not resuscitate; Z51.5 Encounter for palliative care; Z82.5 Family history of asthma and other chronic lower respiratory diseases
CPT/HCPCS: 94660